=== PATIENT | female | born 1960 | race Hispanic/Latino ===

== ENCOUNTER 2016-11-14 06:23 | Day surgery (SDC) | payer OTHER ==
[2016-11-12 15:15] VITALS: BMI 27.1
[2016-11-14] MEDS ORDERED: Propofol 10 mg/ml Inj (20 ML) ONE (07:06)
[2016-11-14] MEDS ORDERED: Succinylcholine 200 mg/10 ml Inj IV ONE (07:07)
[2016-11-14] MEDS ORDERED: ePHEDrine 50 mg/ml Inj ONE (07:07)
[2016-11-14] MEDS ORDERED: Midazolam 2 MG/2 ML VIAL ONE (07:07)
[2016-11-14] MEDS ORDERED: Rocuronium 10 mg/ml (5 ml) ONE ×2 (07:07→08:26)
[2016-11-14] MEDS ORDERED: Phenylephrine 10 mg/ml Inj ONE (07:19)
[2016-11-14] MEDS ORDERED: Bupivacaine 0.5% Inj(30mL) ONE (07:28)
[2016-11-14 07:37] LABS: BLOOD UREA NITROGEN 15 mg/dl (7-17); CALCIUM 9.5 mg/dL (8.4-10.2); GFR AFRICAN-AMERICAN > 60; GFR NON-AFRICAN AMERICAN > 60
[2016-11-14] MEDS ORDERED: Lactated Ringer's 1,000 ML IV ONE ×2 (07:55→08:05)
[2016-11-14] MEDS ORDERED: DiphenhydrAMINE 50 mg/ml Inj ONE (08:56)
[2016-11-14] MEDS ORDERED: Neostigmine Methylsulfate 2 MG/2 ML ML IV ONE (10:34)
[2016-11-14] MEDS ORDERED: Neostigmine Methylsulfate 3mg/3ml Syringe IV ONE (10:34)
[2016-11-14] MEDS ORDERED: HEMOSTATIC MATRIX 10 ML DIS.NEEDLE TOP ONE (10:45)
[2016-11-14] MEDS ORDERED: HYDROmorphone 0.5 mg/0.5 ml ISec IVP PRN (11:23)
[2016-11-14] MEDS ORDERED: DiphenhydrAMINE 50 mg/ml Inj IVP PRN (11:25)
[2016-11-14] MEDS ORDERED: Naloxone 0.4 mg/ml Inj (Adult) IVP PRN (11:25)
--- NOTE | 2016-11-14 16:59 | CP.PCM.CON ---
History of Present Illness - History of Present Illness History of Present Illness: 56 yo female with history of HTN, DM2 and Asthma had Abdl Hysterectomy and Oophorectomy because of Fibroid Uteri referred for management of new onset diabetes diagnosed a month ago. Patient was started on 5mg of Glyburide but later on cut down to 2.5mg because of diaphoretic episodes in the morning. Patient claimed there was no further episodes since medication was lowered. Review of Systems - Review of Systems All systems: reviewed and no additional remarkable complaints except (aside from those mentioned above 12 point system review were negative by me) Past Patient History - Tetanus Immunizations Tetanus Immunization: Unknown - Past Medical History & Family History Past Medical History?: Yes Past Family History: Reviewed and not pertinent - Past Social History Smoking Status: Former Smoker Alcohol: > 2 Drinks/Day Drugs: Denies, Inhalants - CARDIAC Hx Cardiac Disorders: Yes Hx Hypertension: Yes Other/Comment: PERIPHARAL NEUROPAHY - PULMONARY Hx Respiratory Disorders: Yes Hx Asthma: Yes - NEUROLOGICAL Hx Neurological Disorder: Yes Other/Comment: PERIPHERAL NEUROPATHY - HEENT Hx HEENT Problems: No - RENAL Hx Chronic Kidney Disease: No - ENDOCRINE/METABOLIC Hx Endocrine Disorders: Yes Hx Diabetes Mellitus Type 2: Yes - HEMATOLOGICAL/ONCOLOGICAL Hx Blood Disorders: Yes Hx Cancer: Yes (Left Breast Cancer) - INTEGUMENTARY Hx Dermatological Problems: No - MUSCULOSKELETAL/RHEUMATOLOGICAL Hx Musculoskeletal Disorders: No - GASTROINTESTINAL Hx Gastrointestinal Disorders: No - GENITOURINARY/GYNECOLOGICAL Hx Genitourinary Disorders: No - PSYCHIATRIC Hx Psychophysiologic Disorder: No - SURGICAL HISTORY Hx Surgeries: Yes Hx Dilation and Curettage: Yes (X1) Other/Comment: LUMPECTOMY LEFT BREAST - ANESTHESIA Hx Anesthesia: Yes Hx Anesthesia Reactions: No Hx Malignant Hyperthermia: No Has any member of the family had a problem w/ anesthesia?: No Meds Allergies/Adverse Reactions: Allergies Allergy/AdvReac Type Severity Reaction Status Date / Time Penicillins AdvReac RASH Verified 11/12/16 15:15 - Medications Medications: Current Medications Diphenhydramine HCl (Benadryl) 25 mg IVP Q6 PRN PRN Reason: Itching / Pruritus Glyburide (Micronase) 5 mg PO BRK ELAN Heparin Sodium (Porcine) (Heparin) 5,000 units SC Q12 ELAN PRN Reason: Protocol Hydrochlorothiazide (Hydrodiuril) 50 mg PO DAILY ELAN Hydromorphone HCl (Dilaudid 0.2 Mg/Ml Franchise Manager) 0 mg IV PRN PRN; Protocol PRN Reason: Pain, severe (8-10) Last Admin: 11/14/16 13:30 Dose: 0 mg Metoprolol Succinate (Toprol Xl) 100 mg PO DAILY ELAN Naloxone HCl (Narcan) 0.1 mg IVP Q2M PRN PRN Reason: Shortness of Breath Ondansetron HCl (Zofran Inj) 4 mg IVP Q8 PRN PRN Reason: Nausea/Vomiting Physical Exam - Constitutional Appears: No Acute Distress - Head Exam Head Exam: ATRAUMATIC - Eye Exam Eye Exam: absent: Scleral icterus - ENT Exam ENT Exam: Mucous Membranes Moist - Neck Exam Neck exam: Negative for: Meningismus - Respiratory Exam Respiratory Exam: absent: Rhonchi, Wheezes, Respiratory Distress - Cardiovascular Exam Cardiovascular Exam: REGULAR RHYTHM, +S1, +S2 - GI/Abdominal Exam GI & Abdominal Exam: Soft. absent: Tenderness - Rectal Exam Rectal Exam: Deferred - Neurological Exam Neurological exam: Alert, Oriented x3 - Psychiatric Exam Psychiatric exam: Normal Affect - Skin Skin Exam: Dry, Intact Results - Vital Signs Recent Vital Signs: Last Vital Signs Temp 97.6 F 11/14/16 16:26 Pulse 77 11/14/16 16:26 Resp 20 11/14/16 16:26 BP 99/59 L 11/14/16 16:26 Pulse Ox 97 11/14/16 16:26 - Labs Result Diagrams: 11/14/16 07:00 Labs: Laboratory Results - last 24 hr 11/14/16 11/14/16 11/14/16 07:00 07:00 07:17 Sodium 142 Potassium 3.5 L Chloride 102 Carbon Dioxide 27 Anion Gap 17 BUN 15 Creatinine 0.6 L Est GFR ( Amer) > 60 Est GFR (Non-Af Amer) > 60 POC Glucose (mg/dL) 160 H Random Glucose 157 H Calcium 9.5 Blood Type B POSITIVE Blood Type Confirm Antibody Screen Negative BBK History Checked No verified bt 11/14/16 11/14/16 11/14/16 07:48 12:06 16:00 Sodium Potassium Chloride Carbon Dioxide Anion Gap BUN Creatinine Est GFR ( Amer) Est GFR (Non-Af Amer) POC Glucose (mg/dL) 162 H 138 H Random Glucose Calcium Blood Type Blood Type Confirm B POSITIVE Antibody Screen BBK History Checked
[2016-11-15 07:51] LABS: HEMOGLOBIN 11.5 g/dL (12.0-16.0); MEAN CELL VOLUME 91.2 fl (81.0-99.0); MEAN CORPUSCULAR HEMOGLOBIN 30.3 pg (27.0-31.0); MEAN CORPUSCULAR HGB CONC 33.2 g/dL (33.0-37.0); RBC 3.79 Mil/uL (3.80-5.20); RED CELL DISTRIBUTION WIDTH 13.1 % (11.5-14.5); WHITE BLOOD COUNT 11.4 K/uL (4.8-10.8)
[2016-11-15] MEDS ORDERED: Fluticasone-Salmeterol 250-50mcg Diskus IH SCH (09:00)
[2016-11-15] MEDS ORDERED: METOPROLOL SUCCINATE 100 MG PO SCH (09:00)
[2016-11-15] MEDS ORDERED: Metoprolol Succinate 100 mg XL Tab PO SCH (09:00)
--- NOTE | 2016-11-15 10:20 | CP.PCM.PN ---
Subjective - Date & Time of Evaluation Date of Evaluation: 11/15/16 Time of Evaluation: 10:00 - Subjective Subjective: low grade fever 100.1 feels fine NO CP no SOB post op pain controlled accuchecks : glucose controlled Objective - Vital Signs/Intake and Output Vital Signs (last 24 hours): Temp Pulse Resp BP Pulse Ox 99.8 F H 95 H 20 116/69 91 L 11/15/16 09:43 11/15/16 09:34 11/15/16 08:01 11/15/16 09:34 11/15/16 08:01 - Medications Medications: Current Medications Diphenhydramine HCl (Benadryl) 25 mg IVP Q6 PRN PRN Reason: Itching / Pruritus Duloxetine HCl (Cymbalta) 60 mg PO HS [facility] Last Admin: 11/14/16 21:29 Dose: 60 mg Glyburide (Micronase) 2.5 mg PO DAILY [facility] Last Admin: 11/15/16 10:12 Dose: 2.5 mg Heparin Sodium (Porcine) (Heparin) 5,000 units SC Q12 ELAN PRN Reason: Protocol Last Admin: 11/15/16 09:33 Dose: 5,000 units Hydrochlorothiazide (Hydrodiuril) 50 mg PO DAILY [facility] Last Admin: 11/15/16 09:36 Dose: 50 mg Hydromorphone HCl (Dilaudid 0.2 Mg/Ml Orthodontic Laboratory Technician) 0 mg IV PRN PRN; Protocol PRN Reason: Pain, severe (8-10) Last Admin: 11/14/16 13:30 Dose: 0 mg Metoprolol Succinate (Toprol Xl) 100 mg PO DAILY [facility] Last Admin: 11/15/16 09:34 Dose: 100 mg Naloxone HCl (Narcan) 0.1 mg IVP Q2M PRN PRN Reason: Shortness of Breath Ondansetron HCl (Zofran Inj) 4 mg IVP Q8 PRN PRN Reason: Nausea/Vomiting Fluticasone/Salmeterol (Advair Diskus 250/50) 1 puff IH BID [facility] Last Admin: 11/15/16 09:32 Dose: 1 puff - Labs Labs: 11/15/16 05:30 11/14/16 07:00 - Constitutional Appears: No Acute Distress - Head Exam Head Exam: ATRAUMATIC, NORMAL INSPECTION, NORMOCEPHALIC - Eye Exam Eye Exam: EOMI, Normal appearance, PERRL Pupil Exam: NORMAL ACCOMODATION - ENT Exam ENT Exam: Mucous Membranes Moist, Normal External Ear Exam - Neck Exam Neck Exam: Full ROM. absent: Meningismus - Respiratory Exam Respiratory Exam: NORMAL BREATHING PATTERN. absent: Rales, Wheezes, Respiratory Distress - Cardiovascular Exam Cardiovascular Exam: REGULAR RHYTHM, +S1, +S2 - GI/Abdominal Exam GI & Abdominal Exam: Soft (minimal abd tenderness), Tenderness, Normal Bowel Sounds - Extremities Exam Extremities Exam: Full ROM, Normal Capillary Refill. absent: Calf Tenderness, Pedal Edema - Back Exam Back Exam: Full ROM. absent: CVA tenderness (L), CVA tenderness (R) - Neurological Exam Neurological Exam: Alert, Awake, CN II-XII Intact, Normal Gait, Oriented x3 - Psychiatric Exam Psychiatric exam: Normal Affect, Normal Mood - Skin Skin Exam: Dry, Normal Color, Warm Assessment and Plan (1) DM type 2 (diabetes mellitus, type 2) Status: Chronic (2) HTN (hypertension) Status: Chronic (3) Asthma Status: Chronic - Assessment and Plan (Free Text) Assessment: 56 y/o lady admitted for Post menopausal bleeding , underwent Robotic Hysterectomy. Medical team was consulted for management of DM type II (1) DM type 2 (diabetes mellitus, type 2) (2) Post Menopausal Bleeding s/p Robotic Hystrectomy ( 3) HTN controlled (4) Asthma mild intermittent -glucose controlled on current Glipizide dose - cont Glipizide XL 2.5 mg daily - accucheck - ff up with PMD for further mgt of DM - DM diet -cont Metoprolol , Aldactone and Cardizem - cont Adavair
--- NOTE | 2016-11-15 11:28 | CP.PCM.PN ---
Subjective - Date & Time of Evaluation Date of Evaluation: 11/15/16 Time of Evaluation: 11:26 - Subjective Subjective: Patient c/o gas pains but otherwise feeling good able to ambulate and tolerate meals Objective - Vital Signs/Intake and Output Vital Signs (last 24 hours): Temp Pulse Resp BP Pulse Ox 99.8 F H 95 H 20 116/69 91 L 11/15/16 09:43 11/15/16 09:34 11/15/16 08:01 11/15/16 09:34 11/15/16 08:01 - Medications Medications: Current Medications Diphenhydramine HCl (Benadryl) 25 mg IVP Q6 PRN PRN Reason: Itching / Pruritus Duloxetine HCl (Cymbalta) 60 mg PO HS [facility] Last Admin: 11/14/16 21:29 Dose: 60 mg Glyburide (Micronase) 2.5 mg PO DAILY [facility] Last Admin: 11/15/16 10:12 Dose: 2.5 mg Heparin Sodium (Porcine) (Heparin) 5,000 units SC Q12 ELAN PRN Reason: Protocol Last Admin: 11/15/16 09:33 Dose: 5,000 units Hydrochlorothiazide (Hydrodiuril) 50 mg PO DAILY [facility] Last Admin: 11/15/16 09:36 Dose: 50 mg Hydromorphone HCl (Dilaudid 0.2 Mg/Ml Facing Slitter) 0 mg IV PRN PRN; Protocol PRN Reason: Pain, severe (8-10) Last Admin: 11/14/16 13:30 Dose: 0 mg Metoprolol Succinate (Toprol Xl) 100 mg PO DAILY [facility] Last Admin: 11/15/16 09:34 Dose: 100 mg Naloxone HCl (Narcan) 0.1 mg IVP Q2M PRN PRN Reason: Shortness of Breath Ondansetron HCl (Zofran Inj) 4 mg IVP Q8 PRN PRN Reason: Nausea/Vomiting Fluticasone/Salmeterol (Advair Diskus 250/50) 1 puff IH BID [facility] Last Admin: 11/15/16 09:32 Dose: 1 puff - Labs Labs: 11/15/16 05:30 11/14/16 07:00 - Constitutional Appears: Well - Respiratory Exam Respiratory Exam: NORMAL BREATHING PATTERN - GI/Abdominal Exam GI & Abdominal Exam: Distended, Soft, Normal Bowel Sounds. absent: Tenderness - Exam Exam: NORMAL INSPECTION - Extremities Exam Extremities Exam: Normal Inspection (abdominal incsion clean dry and intact and no vaginal bleeding seen) Assessment and Plan - Assessment and Plan (Free Text) Assessment: S/P Robotic assisted hysterectomy Plan: D/C to home f/u with Dr Prater with reevaluation on for wound check
[2016-11-15 11:50] VITALS: BP 116/69; PULSE 95; RESP 20; TEMP 99.8
[2016-11-15 12:01] VITALS: O2SAT 91
--- NOTE | 2016-11-15 15:26 | OP ---
PROCEDURE DATE: 11/14/2016 PREOPERATIVE DIAGNOSES: 1. Persistent postmenopausal bleeding. 2. Endometrial hyperplasia. 3. History of breast cancer. POSTOPERATIVE DIAGNOSES: 1. Persistent postmenopausal bleeding. 2. Endometrial hyperplasia. 3. History of breast cancer, pending pathology. FLUID REPLACEMENT: Lactate Ringer's. DRAINS: Álvarez to gravity. PROCEDURES PERFORMED: 1. Robotic assisted total hysterectomy with bilateral salpingo-oophorectomy. 2. Lysis of adhesions. 3. Cystoscopy. SURGEON: Quin Prater MD CAPTAIN FISHING VESSEL: Toan Escalante MD NURSE PA: Tati. ANESTHESIA: General. COMPLICATIONS: None. ESTIMATED BLOOD LOSS: 100 cc. INDICATIONS FOR PROCEDURE: A 56-year-old with persistent postmenopausal bleeding. DESCRIPTION OF THE PROCEDURE: After informed consent was obtained and signed, the patient was brought to the operating room with IV fluid running. Once placed in the supine position, general anesthesia was subsequently induced. The patient was prepped and draped in the usual sterile fashion and then placed in dorsal lithotomy position. After evaluation of anesthesia, bivalve speculum was placed. The cervix was grasped with single tooth tenaculum, tented forward, dilated and the V-Care device was then deployed with ease and insufflated with air to maintain placement. Attention was then turned to the preprepped abdominal area, and once Marcaine solution was placed 1 cm above the umbilical region where the incision was to be made, 8 mm incision was created. The Veress needle was placed with ease. Abdominal cavity was insufflated with CO2 distention medium. Once this was in place, the rest of the placement of the trocars were delineated. Marcaine was placed on those incision sites, three 8 mm and one 5 mm on the right upper quadrant. Side, two on the left and two on the right incisions were made. The trocars were placed under direct visualization. The robot was then docked to the trocars with ease. Once in place, instruments were then deployed and visualized. Dr. Escalante placed the monopolars and the ProGrasp, then I placed the PK in place. Once all equipments were in, attention was then turned to console. I disrobed, rescrubbed, and entered the console in order to control the robot. Under direct visualization, the uterus was then manipulated. Dr. Escalante carefully displaced the bowel towards the patient's head to move it out of the area of injury along with careful functioning to move all the extraneous, which was created by instruments. Please note, first the bowel was removed from its adhesions on the patient's anterior wall. So, using the monopolar amaya, careful lysis of these adhesions were then performed. Dr. Escalante was helpful to manipulate the bowel to prevent injury and to provide access to these adhesions. Once this was accomplished, the uterus, ovaries, and tubes were completely exposed. The broad ligaments were then grasped using the PK, cauterized bilaterally, and transected with monopolar scissors. Dr. Escalante helpful with dissection. All the extra debris out of the area and displaced bowel backwards, as I attempted to open up posterior leaf of the broad ligament. Entering using the monopolar amaya and the PK forceps, an incision was created and extended. The IP ligament was skeletonized. Using the PK forceps, the IP was grasped and cauterized and transected using the monopolar amaya. Then attention turned to the uterus, which was skeletonized using the monopolar amaya. Dr. Escalante was helpful in retracting the uterus to the contralateral side to give me exposure to the underlying arteries, which were then grasped and cauterized with the PK and transected with the monopolar amaya. Then attention turned to the anterior bladder flap which was extended anteriorly into the contralateral side. The bladder flap was then displaced distally exposing the cuff. Attention then turned to the patient's right side which was re-cauterized and was transected. The posterior leaf of the broad ligament was then entered, an incision was created and an open window was created. The IP ligament was skeletonized using a PK suture. The ligament was then pressed with the PK, cauterized, and transected with the monopolar amaya. The tube was then grasped by Dr. Escalante who lifted anteriorly and I was able to skeletonize the uterine arteries and then transect them while cauterized them with PK and transect using a monopolar amaya. At this point, attention turned to the anterior cuff with using the monopolar amaya and then a colpotomy was performed and I was able to see the green cuff of the VCare device. At this point using the monopolar amaya, a circumferential incision was then performed removing the uterus in the circumferential fashion. Once the cuff was completely exposed and the uterus was freed, Dr. Escalante then extracted the uterus for me with ease. Once this was completed, the vaginal cuff was exposed. Dr. Escalante then released the VCare suture into the abdominal cavity and replaced by monopolar amaya with *------* suture cut. At this point in time, the cuff was the closed in a running fashion. Good hemostasis was noted throughout. Once completed, the needle was removed, Dr. Escalante copiously irrigated and placed FloSeal along the cuff edges. Good hemostasis noted throughout. All equipment was removed and the incisions were then closed by Dr. Escalante using 3-0 Monocryl and Dermabond for skin closure. I then proceeded to do a cystoscopy and with a lubricated cystoscope placed it with ease through the urethral meatus and then insufflated with normal saline as distention medium to about 250 mL. Once this was completed, careful survey of the cavity with noting of efflux from both ureters. Please note, there appear to be a stone-like structure in her bladder wall very, very small. The patient will be encouraged to follow with urology in regards to this matter. All equipment was removed. The patient tolerated the procedure well with sponge, needle, and equipment counts were correct x3. Bandages were applied on the patient's abdominal incisions, and the patient went to recovery room in stable condition. Quin Prater MD
== END 2016-11-15 11:34 | disposition home or self-care (01) ==
LOC: H.OPSURG 06:23 → UNDOADMIN 11:40 → H.MEDSURG1 11:40 → H.OPSURG 23:00 → UNDODISIN 11-15 12:23
PROVIDERS: ATTEND Specialist
PROC: 0UT24ZZ Resection of Bilateral Ovaries, Percutaneous Endoscopic Approach (ICD-10-PCS; 2016-11-14)
PROC: 0UT74ZZ Resection of Bilateral Fallopian Tubes, Percutaneous Endoscopic Approach (ICD-10-PCS; 2016-11-14)
PROC: 0DNW4ZZ Release Peritoneum, Percutaneous Endoscopic Approach (ICD-10-PCS; 2016-11-14)
PROC: 0TJB8ZZ Inspection of Bladder, Via Natural or Artificial Opening Endoscopic (ICD-10-PCS; 2016-11-14)
PROC: 8E0W4CZ Robotic Assisted Procedure of Trunk Region, Percutaneous Endoscopic Approach (ICD-10-PCS; 2016-11-14)
PROC: 0UT94ZZ Resection of Uterus, Percutaneous Endoscopic Approach (ICD-10-PCS; principal; 2016-11-14 07:45)
PROC: 0UTC4ZZ Resection of Cervix, Percutaneous Endoscopic Approach (ICD-10-PCS; 2016-11-14 07:45)
DX: N85.00 Endometrial hyperplasia, unspecified (principal); E11.42 Type 2 diabetes mellitus with diabetic polyneuropathy; N95.0 Postmenopausal bleeding; I10 Essential (primary) hypertension; J45.20 Mild intermittent asthma, uncomplicated; K66.0 Peritoneal adhesions (postprocedural) (postinfection); Z79.84 Long term (current) use of oral hypoglycemic drugs; Z85.3 Personal history of malignant neoplasm of breast; Z87.891 Personal history of nicotine dependence; Z88.0 Allergy status to penicillin; R50.82 Postprocedural fever